=== PATIENT | male | born 1980 | race Caucasian/White ===

== ENCOUNTER 2024-08-24 18:24 | Emergency (ER) | payer BC, MEDICAID ==
[~2024-08-24] VITALS: Ht 188 cm; Wt 94.0 kg
[2024-08-24 18:35] VITALS: BP 128/89; PULSE 60; RESP 18; TEMP 98; O2SAT 99
== END 2024-08-24 22:58 | disposition left against medical advice (07) ==
LOC: EMS 18:24
DX: R51.9 Headache, unspecified (principal); R42 Dizziness and giddiness; Z53.21 Procedure and treatment not carried out due to patient leaving prior to being seen by health care provider